=== PATIENT | male | born 1970 | race Caucasian/White ===

== ENCOUNTER 2021-12-05 21:29 | Emergency (ER) | payer SELFPAY ==
[2021-12-05] MEDS ORDERED: Lisinopril 10 MG Tab PO ONE (21:51)
== END 2021-12-05 22:10 | disposition home or self-care (01) ==
LOC: MW.ED 21:29
DX: I10 Essential (primary) hypertension (principal); Z91.14 Patient's other noncompliance with medication regimen
CPT/HCPCS: 99282; A9270; 99283